=== PATIENT | male | born 1970 | race Caucasian/White ===

== ENCOUNTER 2017-04-19 19:57 | Emergency (ER) | payer OTHER ==
[~2017-04-19] VITALS: Ht 175.2 cm; Wt 81.6 kg
[~2017-04-19 19:57] MED LIST: HYDROCODONE BIT1 T11 PO; MOTRIN800 MG PO
[2017-04-19 20:21] LABS: HEMATOCRIT 27.6 % (42.0-52.0); MEAN CELL VOLUME 107.4 fl (80.0-94.0); MEAN CORPUSCULAR HGB CONC 32.6 g/dl (33.0-37.0); MEAN PLATELET VOLUME 9.9 fl (9.6-12.3); PLATELET COUNT AUTOMATED 102 10*3/uL (130-400); RED BLOOD COUNT 2.57 10*6/uL (4.50-5.90); RED CELL DISTRI WIDTH 17.7 % (0-14.5); WHITE BLOOD COUNT 7.6 10*3/uL (4.8-10.8)
[2017-04-19 20:32] LABS: ACT PARTIAL THROMBO TIME 39.7 SECONDS (20.8-31.5); INTERNATIONAL NORM RATIO 1.1 (2.0-3.5)
[2017-04-19 20:39] LABS: ALBUMIN 2.6 gm/dl (3.1-4.5); ALKALINE PHOSPHATASE 400 U/L (45-117); BUN 18 mg/dl (7-24); CHLORIDE 109 mmol/L (98-107); CREATININE 1.08 mg/dL (0.70-1.30); POTASSIUM 3.7 mmol/L (3.5-5.1); SGOT/AST 36 IU/L (3-35); SGPT/ALT 33 U/L (12-78); SODIUM 142 mmol/L (136-145); TOTAL PROTEIN 6.4 gm/dL (6.4-8.2)
[2017-04-19 20:51] LABS: PLATELET SUFFICIENCY LOW (NORMAL); POLYCHROMASIA SLIGHT; TOTAL CELLS COUNTED 100 #CELLS; TOXIC GRANULATION SLIGHT
[2017-04-19 20:53] LABS: BURR CELLS FEW; SCHISTOCYTES FEW
== END 2017-04-19 23:43 | disposition short-term general hospital (02) ==
LOC: ED 19:57
PROVIDERS: Student in an Organized Health Care Education/Training Program
DX: K94.01 Colostomy hemorrhage (principal); Z91.040 Latex allergy status